=== PATIENT | male | born 1985 | race Caucasian/White ===

== ENCOUNTER 2017-09-14 10:09 | Outpatient (CLI) | payer OTHER ==
[2017-09-14 10:22] LABS: BASOPHILS % 0.4 (0.0-1.5); EOSINOPHILS % 0.1 % (0.0-6.8); MEAN CORPUSCULAR HEMOGLOBIN 30.3 pg (28.0-34.0); MEAN CORPUSCULAR VOLUME 90.2 fl (80.0-100.0); MONOCYTES % 3.6 % (0.0-11.0); NEUTROPHILS # 6.4 # k/uL (1.4-7.7)
[2017-09-14 10:29] LABS: eGFR (African) > 60; eGFR (Non-African) > 60
== END 2017-09-14 10:10 ==
LOC: LAB 10:09
PROVIDERS: ATTEND General Practice
DX: R55 Syncope and collapse (principal)
CPT/HCPCS: 80053; 85025